=== PATIENT | male | born 1970 | race Caucasian/White ===

== ENCOUNTER 2021-03-14 13:54 | Emergency (ER) | payer MEDICARE, BC ==
[2021-03-14 15:47] LABS: AMPHETAMINES,URINE NEGATIVE (NEGATIVE); BARBITURATES,URINE NEGATIVE (NEGATIVE); BENZODIAZEPINE,URINE NEGATIVE (NEGATIVE); MDMA (ECSTASY), URINE NEGATIVE (NEGATIVE); METHADONE,URINE NEGATIVE (NEGATIVE); METHAMPHETAMINES,URINE NEGATIVE (NEGATIVE); OPIATES,URINE NEGATIVE (NEGATIVE); OXYCODONE,URINE NEGATIVE (NEGATIVE); PHENCYCLIDINE,URINE NEGATIVE (NEGATIVE); TCA,URINE NEGATIVE (NEGATIVE)
--- NOTE | 2021-03-14 16:38 | EDM.PDOCBH ---
ED HPI GENERAL MEDICAL PROBLEM - General Chief Complaint: Behavioral/Psych Stated Complaint: psychiatric Time Seen by Provider: 03/14/21 14:05 Source of Information: Reports: Patient, [facility] Records History Limitations: Reports: No Limitations - History of Present Illness INITIAL COMMENTS - FREE TEXT/NARRATIVE: José Miguel is a 50 year old male who presents to ER with police after eloped from the [facility] this am. Police was contacted as would not return back to the [facility]. As police had to "take him down to restrain him, needed medical clearance in order to return him back to the [facility]". Patient has been refusing many meds at the [facility]. Has not taken his metformin, metoprolol all month. Last Invega shot was many weeks ago. Was to have gotten an Invega shot several weeks ago but continued to refuse. They have been in contact with his psychiatrist and actually discontinued the medicine as had not been taking it. Was advised that he could not be admitted by Dr. Mathews unless he posed a suicidal or homicidal risk. Per the nurse, has not had labs for over a year. Used to take oral meds for his schizophrenia but started to refuse those so was switched to IM meds. Has not had any fevers, sore throat, cough, chest congestion, nausea/vomiting or abdominal pain. Denies burning with urination. Onset: Today Duration: Hour(s): Location: Reports: Generalized Associated Symptoms: Reports: Confusion, Other (hallucinations). Denies: Chest Pain, Cough, Fever/Chills, Headaches, Loss of Appetite, Nausea/Vomiting, Shortness of Breath, Weakness - Related Data Allergies Allergy/AdvReac Type Severity Reaction Status Date / Time No Known Allergies Allergy Verified 03/14/21 14:05 Home Meds: Home Meds Losartan Potassium 100 mg PO DAILY 03/14/21 [History] Metoprolol Succinate 200 mg PO DAILY 03/14/21 [History] Paliperidone Palmitate [Invega Sustenna] 156 mg IM Q28D 03/14/21 [History] Paliperidone [Invega] 12 mg PO DAILY 03/14/21 [History] Sennosides/Docusate Sodium [Senna-Docusate Sodium Tablet] 1 each PO WITHBREAKFAST 03/14/21 [History] Sennosides/Docusate Sodium [Senna-Docusate Sodium Tablet] 2 tab PO BEDTIME 03/14/21 [History] Triamterene/Hydrochlorothiazid [Triamterene-HCTZ 37.5-25 MG] 1 each PO DAILY 03/14/21 [History] amLODIPine Besylate [Amlodipine Besylate] 10 mg PO BEDTIME 03/14/21 [History] metFORMIN HCl [Metformin HCl ER] 1,000 mg PO BID 03/14/21 [History] Past Medical History - Past Health History Medical/Surgical History: Denies Medical/Surgical History Cardiovascular History: Reports: Hypertension Psychiatric History: Reports: Anxiety, Dementia, Mood Swings, Schizophrenia Social & Family History - Family History Family Medical History: No Pertinent Family History - Tobacco Use Tobacco Use Status *Q: Never Tobacco User Second Hand Smoke Exposure: No ED ROS GENERAL - Review of Systems Review Of Systems: See Below Constitutional: Denies: Fever, Chills, Malaise, Weakness, Fatigue, Decreased Appetite HEENT: Reports: Rhinitis. Denies: Ear Pain, Sinus Problem, Throat Pain Respiratory: Denies: Shortness of Breath, Cough Cardiovascular: Denies: Chest Pain, Edema, Lightheadedness Endocrine: Denies: Fatigue GI/Abdominal: Denies: Abdominal Pain, Constipation, Diarrhea, Nausea, Vomiting : Reports: No Symptoms Musculoskeletal: Reports: No Symptoms Skin: Reports: No Symptoms Neurological: Reports: Confusion Psychiatric: Reports: Hallucinations ED EXAM, BEHAVIORAL HEALTH - Physical Exam Exam: See Below Exam Limited By: No Limitations General Appearance: Alert, WD/WN, No Apparent Distress Ears: Normal External Exam, Normal TMs Nose: Normal Inspection, Normal Mucosa, No Blood Throat/Mouth: Normal Inspection, Normal Oropharynx Head: Normocephalic Neck: Normal Inspection, Supple, Non-Tender Respiratory/Chest: No Respiratory Distress, Lungs Clear, Normal Breath Sounds Cardiovascular: Tachycardia GI/Abdominal: Normal Bowel Sounds, Soft, Non-Tender Extremities: Normal Inspection, Pedal Edema (1+) Neurological: Alert Psychiatric: Flat Affect Skin Exam: Warm, Dry COURSE, BEHAVIORAL HEALTH COMP - Course Vital Signs: Last Vital Signs Temp 98.6 F 03/14/21 17:18 Pulse 125 H 03/14/21 17:18 Resp 20 03/14/21 17:18 BP 171/97 H 03/14/21 17:18 Pulse Ox 98 03/14/21 17:18 Orders, Labs, Meds: Active Orders 24 hr Category Date Time Status Chest 2V [CR] Stat Exams 03/14/21 14:45 Taken CULTURE URINE [RM] Stat Lab 03/14/21 14:02 Received Sodium Chloride 0.9% [Normal Saline] 1,000 ml Med 03/14/21 17:00 Active IV ASDIRECTED Medication Orders Sodium Chloride (Normal Saline) 1,000 mls @ 999 mls/hr IV ASDIRECTED DAVION Last Admin: 03/14/21 16:58 Dose: 999 mls/hr Documented by: SHENG Laboratory Tests 03/14/21 03/14/21 03/14/21 Range/Units 14:02 14:02 14:25 WBC 18.6 H (4.0-11.0) 10^3/uL RBC 5.14 (4.50-6.00) x10^6/uL Hgb 13.5 L (14.0-18.0) g/dL Hct 42.1 (42.0-52.0) % MCV 81.9 L (83.0-97.0) fL MCH 26.3 L (27.0-32.0) pg MCHC 32.1 (32.0-36.0) g/dL RDW Coeff of Dona 14.3 (11.0-15.0) % Plt Count 391 (150-400) 10^3/uL Immature Gran % (Auto) 0.7 (0.0-4.9) % Neut % (Auto) 85.0 H (41-71) % Lymph % (Auto) 8.4 L (24-44) % [place] % (Auto) 5.7 (0-10) % Eos % (Auto) 0.1 (0-6) % Baso % (Auto) 0.1 (0-1) % Neut # (Auto) 15.84 H (1.80-8.00) x10^3/uL Lymph # (Auto) 1.56 (0.60-5.00) 10^3/uL [place] # (Auto) 1.07 (0.00-1.50) 10^3/uL Eos # (Auto) 0.02 (0.00-1.50) 10^3/uL Baso # (Auto) 0.02 (0.00-0.50) 10^3/uL Immature Gran # (Auto) 0.13 (0.00-0.49) 10^3/uL Sodium (136-145) mEq/L Potassium (3.5-5.0) mEq/L Chloride (98-106) mEq/L Carbon Dioxide (21-32) mmol/L BUN (7-18) mg/dL Creatinine (0.7-1.3) mg/dL Est Cr Clr Drug Dosing mL/min Estimated GFR (MDRD) (>=60) mL/min Glucose (75-99) mg/dL Lactic Acid (0.4-2.0) mmol/L Calcium (8.4-10.1) mg/dL Total Bilirubin (0.0-1.0) mg/dL AST (15-37) U/L ALT (12-78) U/L Alkaline Phosphatase (46-116) U/L Troponin I High Sens (<=76) pg/mL C-Reactive Protein (0.2-0.8) mg/dL Total Protein (6.4-8.2) g/dL Albumin (3.4-5.0) g/dL Urine Color Yellow (YELLOW) Urine Appearance Clear (CLEAR) Urine pH 5.0 (4.5-8.0) Ur Specific [place] 1.020 (1.003-1.020) Urine Protein 100 H (NEGATIVE) mg/dL Urine Glucose (UA) 100 H (NEGATIVE) mg/dL Urine Ketones Negative (NEGATIVE) mg/dL Urine Occult Blood Negative (NEGATIVE) Urine Nitrite Negative (NEGATIVE) Urine Bilirubin Negative (NEGATIVE) Urine Urobilinogen 0.2 (0.2-1.0) EU/dL Ur Leukocyte Esterase Trace H (NEGATIVE) Urine RBC Not seen (0-5) /HPF Urine WBC 5-10 H (0-5) /HPF Ur Epithelial Cells Moderate H (NOT SEEN) /HPF Urine Bacteria Few H (NOT SEEN) /HPF Granular Casts (Auto) Moderate (NOT SEEN) /LPF Urine Opiates Screen Negative (NEGATIVE) Ur Oxycodone Screen Negative (NEGATIVE) Urine Methadone Screen Negative (NEGATIVE) Ur Barbiturates Screen Negative (NEGATIVE) U Tricyclic Antidepress Negative (NEGATIVE) Ur Phencyclidine Scrn Negative (NEGATIVE) Ur Amphetamine Screen Negative (NEGATIVE) U Methamphetamines Scrn Negative (NEGATIVE) Urine MDMA Screen Negative (NEGATIVE) U Benzodiazepines Scrn Negative (NEGATIVE) Urine Cocaine Screen Negative (NEGATIVE) U Marijuana (THC) Screen Negative (NEGATIVE) SARS CoV-2 RNA Rapid EUNICE (NEGATIVE) 03/14/21 03/14/21 03/14/21 Range/Units 14:25 14:25 15:40 WBC (4.0-11.0) 10^3/uL RBC (4.50-6.00) x10^6/uL Hgb (14.0-18.0) g/dL Hct (42.0-52.0) % MCV (83.0-97.0) fL MCH (27.0-32.0) pg MCHC (32.0-36.0) g/dL RDW Coeff of Dona (11.0-15.0) % Plt Count (150-400) 10^3/uL Immature Gran % (Auto) (0.0-4.9) % Neut % (Auto) (41-71) % Lymph % (Auto) (24-44) % [place] % (Auto) (0-10) % Eos % (Auto) (0-6) % Baso % (Auto) (0-1) % Neut # (Auto) (1.80-8.00) x10^3/uL Lymph # (Auto) (0.60-5.00) 10^3/uL [place] # (Auto) (0.00-1.50) 10^3/uL Eos # (Auto) (0.00-1.50) 10^3/uL Baso # (Auto) (0.00-0.50) 10^3/uL Immature Gran # (Auto) (0.00-0.49) 10^3/uL Sodium 144 (136-145) mEq/L Potassium 3.2 L (3.5-5.0) mEq/L Chloride 104 (98-106) mEq/L Carbon Dioxide 20 L (21-32) mmol/L BUN 23 H (7-18) mg/dL Creatinine 2.6 H* D (0.7-1.3) mg/dL Est Cr Clr Drug Dosing 35.40 mL/min Estimated GFR (MDRD) 26 L (>=60) mL/min Glucose 174 H D (75-99) mg/dL Lactic Acid 5.4 H (0.4-2.0) mmol/L Calcium 9.2 (8.4-10.1) mg/dL Total Bilirubin 0.3 (0.0-1.0) mg/dL AST 16 (15-37) U/L ALT 28 (12-78) U/L Alkaline Phosphatase 86 (46-116) U/L Troponin I High Sens 64.1 (<=76) pg/mL C-Reactive Protein 4.1 H (0.2-0.8) mg/dL Total Protein 8.1 (6.4-8.2) g/dL Albumin 3.2 L (3.4-5.0) g/dL Urine Color (YELLOW) Urine Appearance (CLEAR) Urine pH (4.5-8.0) Ur Specific [place] (1.003-1.020) Urine Protein (NEGATIVE) mg/dL Urine Glucose (UA) (NEGATIVE) mg/dL Urine Ketones (NEGATIVE) mg/dL Urine Occult Blood (NEGATIVE) Urine Nitrite (NEGATIVE) Urine Bilirubin (NEGATIVE) Urine Urobilinogen (0.2-1.0) EU/dL Ur Leukocyte Esterase (NEGATIVE) Urine RBC (0-5) /HPF Urine WBC (0-5) /HPF Ur Epithelial Cells (NOT SEEN) /HPF Urine Bacteria (NOT SEEN) /HPF Granular Casts (Auto) (NOT SEEN) /LPF Urine Opiates Screen (NEGATIVE) Ur Oxycodone Screen (NEGATIVE) Urine Methadone Screen (NEGATIVE) Ur Barbiturates Screen (NEGATIVE) U Tricyclic Antidepress (NEGATIVE) Ur Phencyclidine Scrn (NEGATIVE) Ur Amphetamine Screen (NEGATIVE) U Methamphetamines Scrn (NEGATIVE) Urine MDMA Screen (NEGATIVE) U Benzodiazepines Scrn (NEGATIVE) Urine Cocaine Screen (NEGATIVE) U Marijuana (THC) Screen (NEGATIVE) SARS CoV-2 RNA Rapid EUNICE (NEGATIVE) 03/14/21 Range/Units 15:51 WBC (4.0-11.0) 10^3/uL RBC (4.50-6.00) x10^6/uL Hgb (14.0-18.0) g/dL Hct (42.0-52.0) % MCV (83.0-97.0) fL MCH (27.0-32.0) pg MCHC (32.0-36.0) g/dL RDW Coeff of Dona (11.0-15.0) % Plt Count (150-400) 10^3/uL Immature Gran % (Auto) (0.0-4.9) % Neut % (Auto) (41-71) % Lymph % (Auto) (24-44) % [place] % (Auto) (0-10) % Eos % (Auto) (0-6) % Baso % (Auto) (0-1) % Neut # (Auto) (1.80-8.00) x10^3/uL Lymph # (Auto) (0.60-5.00) 10^3/uL [place] # (Auto) (0.00-1.50) 10^3/uL Eos # (Auto) (0.00-1.50) 10^3/uL Baso # (Auto) (0.00-0.50) 10^3/uL Immature Gran # (Auto) (0.00-0.49) 10^3/uL Sodium (136-145) mEq/L Potassium (3.5-5.0) mEq/L Chloride (98-106) mEq/L Carbon Dioxide (21-32) mmol/L BUN (7-18) mg/dL Creatinine (0.7-1.3) mg/dL Est Cr Clr Drug Dosing mL/min Estimated GFR (MDRD) (>=60) mL/min Glucose (75-99) mg/dL Lactic Acid (0.4-2.0) mmol/L Calcium (8.4-10.1) mg/dL Total Bilirubin (0.0-1.0) mg/dL AST (15-37) U/L ALT (12-78) U/L Alkaline Phosphatase (46-116) U/L Troponin I High Sens (<=76) pg/mL C-Reactive Protein (0.2-0.8) mg/dL Total Protein (6.4-8.2) g/dL Albumin (3.4-5.0) g/dL Urine Color (YELLOW) Urine Appearance (CLEAR) Urine pH (4.5-8.0) Ur Specific [place] (1.003-1.020) Urine Protein (NEGATIVE) mg/dL Urine Glucose (UA) (NEGATIVE) mg/dL Urine Ketones (NEGATIVE) mg/dL Urine Occult Blood (NEGATIVE) Urine Nitrite (NEGATIVE) Urine Bilirubin (NEGATIVE) Urine Urobilinogen (0.2-1.0) EU/dL Ur Leukocyte Esterase (NEGATIVE) Urine RBC (0-5) /HPF Urine WBC (0-5) /HPF Ur Epithelial Cells (NOT SEEN) /HPF Urine Bacteria (NOT SEEN) /HPF Granular Casts (Auto) (NOT SEEN) /LPF Urine Opiates Screen (NEGATIVE) Ur Oxycodone Screen (NEGATIVE) Urine Methadone Screen (NEGATIVE) Ur Barbiturates Screen (NEGATIVE) U Tricyclic Antidepress (NEGATIVE) Ur Phencyclidine Scrn (NEGATIVE) Ur Amphetamine Screen (NEGATIVE) U Methamphetamines Scrn (NEGATIVE) Urine MDMA Screen (NEGATIVE) U Benzodiazepines Scrn (NEGATIVE) Urine Cocaine Screen (NEGATIVE) U Marijuana (THC) Screen (NEGATIVE) SARS CoV-2 RNA Rapid EUNICE Negative (NEGATIVE) Medications Generic Name Dose Route Start Last Admin Trade Name Freq PRN Reason Stop Dose Admin Sodium Chloride 1,000 mls @ 999 mls/hr 03/14/21 17:00 03/14/21 16:58 Normal Saline IV 999 mls/hr ASDIRECTED DAVION Administration Re-Assessment/Re-Exam: 1515-Initial lab results received. Waiting on urine. Discussed with patient and suggested IV fluids due to elevated creatinine. WBC high, unable yet to find source. Chest xray ordered. Contacted [facility] to discuss medical concerns with additional psych concerns. Spoke with hospitalist. Advised to return call after urine received to help rule out source of infection. 1615-UA essentially negative. Patient is now agreeable to allowing us to put an IV in. Reconnected with hospitalist Dr. Russo in regards to patient's labs, no known source of infection and underlying untreated schizophrenia. Is conversing yet with paranoid concerns of feeling like he was being poisoned, people stealing from him, etc. Dr. Russo does agree to transfer of patient. IV normal saline infusing at 999 ml/hr. Will call back when they have a bed for her. 1730-Patient has been resting comfortably, no change in status. Heart rate 130s, BP 171/97. No fever. [facility] called with available bed. Patient given supper. Will page out for BLS transfer. Departure - Departure Time of Disposition: 17:41 Disposition: DC/Tfer to [facility] 02 Condition: Good Clinical Impression: Leukocytosis, ALEJANDRO (acute kidney injury), Schizophrenia - Discharge Information *PRESCRIPTION DRUG MONITORING PROGRAM REVIEWED*: No *COPY OF PRESCRIPTION DRUG MONITORING REPORT IN PATIENT LUKE: No Referrals: Jeremy Monterroso MD [Primary Care Provider] - Forms: ED Department Discharge Additional Instructions: Transfer to [facility] to DR. Russo Sepsis Event Note (ED) - Evaluation Sepsis Screening Result: No Definite Risk - Focused Exam Vital Signs: Vital Signs Temp Temp Pulse Resp BP BP Pulse Ox 03/14/21 17:18 98.6 F 125 H 20 171/97 H 98 03/14/21 13:56 98.4 F 160 H 13 150/84 H 98 - My Orders Last 24 Hours: My Active Orders 03/14/21 14:02 CULTURE URINE [RM] Stat 03/14/21 14:45 Chest 2V [CR] Stat 03/14/21 17:00 Sodium Chloride 0.9% [Normal Saline] 1,000 ml IV ASDIRECTED - Assessment/Plan Last 24 Hours: My Active Orders 03/14/21 14:02 CULTURE URINE [RM] Stat 03/14/21 14:45 Chest 2V [CR] Stat 03/14/21 17:00 Sodium Chloride 0.9% [Normal Saline] 1,000 ml IV ASDIRECTED
[2021-03-14] MEDS: Sodium Chloride 0.9% 1,000 ML IV SCH ×2 (16:58→17:59)
== END 2021-03-14 18:20 ==
LOC: CC.ED 13:54
DX: F20.9 Schizophrenia, unspecified (principal); N17.9 Acute kidney failure, unspecified; D72.829 Elevated white blood cell count, unspecified; I10 Essential (primary) hypertension; Z79.899 Other long term (current) drug therapy; Z20.822 Contact with and (suspected) exposure to COVID-19
CPT/HCPCS: 36415; 71046; 80053; 80305-QW; 81001; 83605; 84484; 85025; 86140; 87086; 93005; 93010; 99284; 99285-25; J7030; U0002